=== PATIENT | female | born 1995 | race African-American/Black ===

== ENCOUNTER → 2016-09-11 13:53 | Emergency (ER) | payer SELFPAY ==
[~2016-09-11 13:53] MED LIST: CLIN1CAP6 PO; IBUP-232 PO; NUVAMIS PV; NUVAMIS VAGINAL; PERI0.126 SWISH-SPIT
[2016-09-11 13:55] VITALS: BP 124/75; PULSE 71; RESP 12; TEMP 97.5; O2SAT 97
== END | disposition left against medical advice (07) ==
LOC: NED 13:53
DX: K08.89 Other specified disorders of teeth and supporting structures (principal)
CPT/HCPCS: 99281

== ENCOUNTER 2016-09-13 13:39 | Emergency (ER) | payer SELFPAY ==
[~2016-09-13] VITALS: Ht 160 cm; Wt 93.0 kg
[~2016-09-13 13:39] MED LIST changes: -CLIN1CAP6 PO; -IBUP-232 PO; -NUVAMIS VAGINAL; -PERI0.126 SWISH-SPIT
[2016-09-13 13:41] VITALS: BP 130/66; PULSE 74; RESP 16; TEMP 98.4; O2SAT 96
[2016-09-13] MEDS ORDERED: NUVAMIS VAGINAL (13:45)
[2016-09-13] MEDS ORDERED: CLINDAMYCIN 150 MG CAP PO ONE (14:00)
[2016-09-13] MEDS ORDERED: PERI0.126 SWISH-SPIT (14:02)
[2016-09-13] MEDS ORDERED: IBUP-232 PO (14:02)
[2016-09-13] MEDS ORDERED: CLIN1CAP6 PO (14:02)
--- NOTE | 2016-09-13 14:03 | PD ---
HPI Chief Complaint: Oral / Dental Pain or Problem Time Seen by Provider: 13:58 Travel History International Travel<30 days: No Contact w/Intl Traveler<30days: No Traveled to known affect area: No History of Present Illness HPI 21-year-old female presents to the emergency department for evaluation of possible dental abscess. She states the toothache started on Saturday, 6 days ago , but the swelling started 5 days ago. She denies any fevers or chills. She reports no history of chronic medical problems and takes no prescribed medications. She states she has not been on antibiotics for this issue. Patient denies . She denies any other complaints. PFSH Past Medical History Diminished Hearing: No Reproductive: No Respiratory: Yes (asthma as a child) Immunizations Current: Yes ?: Not LMP: last week : 2 Para: 1 Miscarriage: 1 : 0 Past Surgical History Tonsillectomy: Yes Social History Alcohol Use: No (DENIES) Tobacco Use: No (DENIES) Substance Use: No Allergies-Medications (Allergen,Severity, Reaction): Coded Allergies: No Known Allergies (Verified , 09/13/16) Reported Meds & Prescriptions Reported Meds & Active Scripts Active Reported Nuvaring Vaginal Insert (Etonogestrel-Ethinyl Estradiol Vaginal Insert) 0.120- 0.015 Mg/24 Hr Vagring 1 Applic VAGINAL DIRECTED Review of Systems Except as stated in HPI: all other systems reviewed are Neg Physical Exam Narrative GENERAL: Well-developed well-nourished female patient, ambulatory. Afebrile. SKIN: Warm and dry. HEAD: Normocephalic. Atraumatic. No facial swelling noted. ENT: Mucosa pink and moist. No erythema or exudates. No uvular edema. No uvular , palatal, or tonsillar deviation. Airway patent. Nasal turbinates appear normal without nasal blood, purulent drainage or septal hematoma. Bilateral tympanic membranes are clear without erythema or perforation. Patient has tenderness to gingiva above tooth #6 and 7 consistent with a dental abscess. EYES: No scleral icterus. No injection or drainage. NECK: Supple, trachea midline. No JVD or lymphadenopathy. CARDIOVASCULAR: Regular rate and rhythm without murmurs, gallops, or rubs. RESPIRATORY: Breath sounds equal bilaterally. No accessory muscle use. Lungs sounds clear to auscultation. MUSCULOSKELETAL: No cyanosis, or edema. Data Data Last Documented VS Vital Signs Date Time Temp Pulse Resp B/P Pulse Ox O2 Delivery O2 Flow Rate FiO2 09/13/16 13:41 98.4 74 16 130/66 96 Room Air Orders Clindamycin (Cleocin) (09/13/16 14:00) MDM Medical Decision Making Medical Screen Exam Complete: Yes Emergency Medical Condition: Yes Medical Record Reviewed: Yes Differential Diagnosis Dental abscess versus gingivitis versus dental caries Narrative Course 21-year-old female presents to the emergency department for evaluation of toothache for 6 days. Physical exam is consistent with a dental abscess. Patient is given clindamycin 300 mg by mouth the emergency department. She will be discharged with a prescription for clindamycin, ibuprofen, Peridex oral solution. She is instructed to follow-up with a dentist. She is to return for any acute worsening of symptoms. Patient is agreeable. Diagnosis Primary Impression: Dental abscess Referrals: Dentist call for appointment Patient Instructions: Dental Abscess (ED), General Instructions Additional Instructions: Take antibiotic as directed until gone. Use Peridex oral solution as directed. Take ibuprofen as instructed as needed with food for pain. Follow-up with a dentist. Return to the emergency department for any acute worsening of symptoms. Med/Other Pt SpecificInfo: Prescription(s) given Scripts Chlorhexidine Gluconate (Mouth) Liq (Peridex Liq)0.12% Soln15 Ml SWISH-SPIT BID #473 ML Ref 0 Prov:Laney Bass 09/13/16 Ibuprofen 600 Mg [id number] Mg PO TID PRN (PAIN SCALE 1 TO 10) #21 TAB Ref 0 Prov:Laney Bass 09/13/16 Clindamycin 300 Mg [id number] Mg PO Q6H 10 Days Ref 0 Prov:Laney Bass 09/13/16 Disposition: 01 DISCHARGE HOME Condition: Stable Laney Bass Sep 13, 2016 14:03
== END 2016-09-13 14:11 | disposition home or self-care (01) ==
LOC: NEPB 13:39
DX: K04.7 Periapical abscess without sinus (principal)
CPT/HCPCS: 99282

== ENCOUNTER 2017-03-04 00:21 | Emergency (ER) | payer OTHER ==
[~2017-03-04] VITALS: Ht 160 cm; Wt 110.0 kg
[~2017-03-04 00:21] MED LIST changes: +CLIN1CAP6 PO; +IBUP-232 PO; -NUVAMIS PV; +NUVAMIS VAGINAL; +PERI0.126 SWISH-SPIT
[2017-03-04 00:53] VITALS: BP 131/73; PULSE 84; RESP 18; TEMP 97.9; O2SAT 99
--- NOTE | 2017-03-04 01:06 | PD ---
HPI Chief Complaint: Psychiatric Symptoms Time Seen by Provider: 01:02 Travel History International Travel<30 days: No Contact w/Intl Traveler<30days: No Traveled to known affect area: No History of Present Illness HPI 21-year-old black female presents to emergency department under [place] act by [place]. The patient had called dispatch notifying them she was feeling acutely depressed and having suicidal thoughts. She had contemplated walking out to traffic. She states that she's been feeling more depressed here recently but what more so today. She states that she lost her job a couple weeks ago. She is concerned regarding her rent coming due. She also had a fight with her boyfriend today. She denies any toxic ingestions. No recent illness. She denies . She denies alcohol, drugs and tobacco. PFSH Past Medical History Medical History: Denies Significant Hx Diminished Hearing: No Reproductive: No Respiratory: Yes (asthma as a child) Immunizations Current: Yes Tetanus Vaccination: < 5 Years ?: Not : 2 Para: 1 Miscarriage: 1 : 0 Past Surgical History Narrative Surgical Tonsillectomy Tonsillectomy: Yes Social History Alcohol Use: No (DENIES) Tobacco Use: No (DENIES) Substance Use: No Allergies-Medications (Allergen,Severity, Reaction): Coded Allergies: No Known Allergies (Verified , 09/13/16) Reported Meds & Prescriptions Reported Meds & Active Scripts Active Review of Systems Except as stated in HPI: all other systems reviewed are Neg Psychiatric: Positive: Depression, Suicidal Ideations, Mood Disorder, No: Anxiety, Disorder of Thought, Substance Abuse, Homicidal Ideation Physical Exam Narrative GENERAL: Well-nourished, well-developed patient. SKIN: Warm and dry. HEAD: Normocephalic and atraumatic. EYES: No scleral icterus. No injection or drainage. ENT: No nasal drainage noted. Mucous membranes pink. Airway patent. NECK: Supple, trachea midline. Moves head freely without obvious discomfort. CARDIOVASCULAR: Regular rate and rhythm without murmurs, gallops, or rubs. RESPIRATORY: Breath sounds equal bilaterally. No accessory muscle use. GASTROINTESTINAL: Abdomen soft, non-tender, nondistended. EXTREMITIES: No cyanosis or edema. BACK: Nontender without obvious deformity. No CVA tenderness. NEURO: Patient is alert and oriented. no sensorimotor deficits. Nonfocal. Normal speech. PSYCH: No delusions. No auditory or visual hallucinations. Data Data Last Documented VS Vital Signs Date Time Temp Pulse Resp B/P Pulse Ox O2 Delivery O2 Flow Rate FiO2 03/04/17 00:53 97.9 84 18 131/73 99 Orders Complete Blood Count With Diff (03/04/17 01:00) Comprehensive Metabolic Panel (03/04/17 01:00) Ed Urine Pregnancytest Poc (03/04/17 01:00) Psych Screen (03/04/17 01:00) Drug Screen, Random Urine (03/04/17 01:00) Alcohol (Ethanol) (03/04/17 01:00) Salicylates (Aspirin) (03/04/17 01:00) Tylenol (Acetaminophen) (03/04/17 01:00) Labs Laboratory Tests Test 03/04/17 01:00 White Blood Count 9.3 TH/MM3 Red Blood Count 4.35 MIL/MM3 Hemoglobin 13.2 GM/DL Hematocrit 39.7 % Mean Corpuscular Volume 91.3 FL Mean Corpuscular Hemoglobin 30.4 PG Mean Corpuscular Hemoglobin 33.3 % Concent Red Cell Distribution Width 13.6 % Platelet Count 235 TH/MM3 Mean Platelet Volume 10.0 FL Neutrophils (%) (Auto) 63.6 % Lymphocytes (%) (Auto) 24.9 % Monocytes (%) (Auto) 9.6 % Eosinophils (%) (Auto) 1.3 % Basophils (%) (Auto) 0.6 % Neutrophils # (Auto) 5.9 TH/MM3 Lymphocytes # (Auto) 2.3 TH/MM3 Monocytes # (Auto) 0.9 TH/MM3 Eosinophils # (Auto) 0.1 TH/MM3 Basophils # (Auto) 0.1 TH/MM3 CBC Comment DIFF FINAL Differential Comment Sodium Level 138 MEQ/L Potassium Level 3.8 MEQ/L Chloride Level 106 MEQ/L Carbon Dioxide Level 26.9 MEQ/L Anion Gap 5 MEQ/L Blood Urea Nitrogen 13 MG/DL Creatinine 0.91 MG/DL Estimat Glomerular Filtration 94 ML/MIN Rate Random Glucose 89 MG/DL Calcium Level 9.0 MG/DL Total Bilirubin 0.2 MG/DL Aspartate Amino Transf 12 U/L (AST/SGOT) Alanine Aminotransferase 28 U/L (ALT/SGPT) Alkaline Phosphatase 62 U/L Total Protein 7.5 GM/DL Albumin 3.6 GM/DL Salicylates Level LESS THAN 1.7 MG/DL Urine Opiates Screen NEG Acetaminophen Level LESS THAN 2.0 MCG/ML Urine Barbiturates Screen NEG Urine Amphetamines Screen NEG Urine Benzodiazepines Screen NEG Urine Cocaine Screen NEG Urine Cannabinoids Screen NEG Ethyl Alcohol Level LESS THAN 3 MG/DL MDM Medical Decision Making Medical Screen Exam Complete: Yes Emergency Medical Condition: Yes Medical Record Reviewed: Yes Interpretation(s) Laboratory Tests Test 03/04/17 01:00 White Blood Count 9.3 TH/MM3 Red Blood Count 4.35 MIL/MM3 Hemoglobin 13.2 GM/DL Hematocrit 39.7 % Mean Corpuscular Volume 91.3 FL Mean Corpuscular Hemoglobin 30.4 PG Mean Corpuscular Hemoglobin 33.3 % Concent Red Cell Distribution Width 13.6 % Platelet Count 235 TH/MM3 Mean Platelet Volume 10.0 FL Neutrophils (%) (Auto) 63.6 % Lymphocytes (%) (Auto) 24.9 % Monocytes (%) (Auto) 9.6 % Eosinophils (%) (Auto) 1.3 % Basophils (%) (Auto) 0.6 % Neutrophils # (Auto) 5.9 TH/MM3 Lymphocytes # (Auto) 2.3 TH/MM3 Monocytes # (Auto) 0.9 TH/MM3 Eosinophils # (Auto) 0.1 TH/MM3 Basophils # (Auto) 0.1 TH/MM3 CBC Comment DIFF FINAL Differential Comment Sodium Level 138 MEQ/L Potassium Level 3.8 MEQ/L Chloride Level 106 MEQ/L Carbon Dioxide Level 26.9 MEQ/L Anion Gap 5 MEQ/L Blood Urea Nitrogen 13 MG/DL Creatinine 0.91 MG/DL Estimat Glomerular Filtration 94 ML/MIN Rate Random Glucose 89 MG/DL Calcium Level 9.0 MG/DL Total Bilirubin 0.2 MG/DL Aspartate Amino Transf 12 U/L (AST/SGOT) Alanine Aminotransferase 28 U/L (ALT/SGPT) Alkaline Phosphatase 62 U/L Total Protein 7.5 GM/DL Albumin 3.6 GM/DL Salicylates Level LESS THAN 1.7 MG/DL Urine Opiates Screen NEG Acetaminophen Level LESS THAN 2.0 MCG/ML Urine Barbiturates Screen NEG Urine Amphetamines Screen NEG Urine Benzodiazepines Screen NEG Urine Cocaine Screen NEG Urine Cannabinoids Screen NEG Ethyl Alcohol Level LESS THAN 3 MG/DL Differential Diagnosis MDM: High Differential diagnoses: Schizophrenia, schizoaffective disorder, bipolar, anxiety, depression, adjustment reaction, mood disorder NOS, ODD, depressive disorder NOS, dementia, dementia with agitation, psychosis NOS, substance induced mood disorder, intermittent explosive disorder, Asperger syndrome, infection,electrolyte abnormality, malingering. Narrative Course Mental health screening discussed with the patient. Psychiatric screen ordered. The patient's been medically cleared. This is medical clearance for psychiatric admission, depression with SI Diagnosis Primary Impression: Medical clearance for psychiatric admission Additional Impression: Depression, major, single episode Qualified Code: F32.9 - Single current episode of major depressive disorder, unspecified depression episode severity Condition: Stable Gavin Klein Mar 04, 2017 01:05
[2017-03-04 01:32] LABS: AUTOMATED NEUTROPHIL # 5.9 TH/MM3 (1.8-7.7); BASOPHIL # 0.1 TH/MM3 (0-0.2); BASOPHIL % 0.6 % (0.0-2.0); EOSINOPHIL # 0.1 TH/MM3 (0-0.4); EOSINOPHIL % 1.3 % (0.0-4.0); HEMATOCRIT 39.7 % (35.0-46.0); HEMO FLAGS DIFF FINAL; LYMPH % 24.9 % (9.0-44.0); LYMPHOCYTE # 2.3 TH/MM3 (1.0-4.8); MEAN CELL VOLUME 91.3 FL (80.0-100.0); MEAN CORPUSCULAR HEMOGLOBIN 30.4 PG (27.0-34.0); MEAN CORPUSCULAR HGB CONC 33.3 % (32.0-36.0); MONO % 9.6 % (0.0-8.0); NEUT % 63.6 % (16.0-70.0); PLATELET COUNT 235 TH/MM3 (150-450); RED BLOOD COUNT 4.35 MIL/MM3 (4.00-5.30); RED CELL DISTRIBUTION WIDTH 13.6 % (11.6-17.2); WHITE BLOOD COUNT 9.3 TH/MM3 (4.0-11.0)
[2017-03-04 01:49] LABS: AMPHETAMINE, URINE NEG (NEG); BARBITURATES, URINE NEG (NEG); COCAINE, URINE NEG (NEG)
[2017-03-04 01:59] LABS: ALT (GPT) 28 U/L (10-53); ANION GAP 5 MEQ/L (5-15); AST (GOT) 12 U/L (15-37); BICARBONATE 26.9 MEQ/L (21.0-32.0); BLOOD UREA NITROGEN 13 MG/DL (7-18); CHLORIDE 106 MEQ/L (98-107); GLOMERULAR FILTRATION RATE 94 ML/MIN (>89); POTASSIUM 3.8 MEQ/L (3.5-5.1); SODIUM (NA) 138 MEQ/L (136-145)
[2017-03-04 02:01] LABS: ALKALINE PHOSPHATASE 62 U/L (45-117); TOTAL BILIRUBIN ADULT 0.2 MG/DL (0.2-1.0)
[2017-03-04 02:15] LABS: ACETAMINOPHEN LESS THAN 2.0 MCG/ML (10.0-30.0)
[2017-03-04 08:03] VITALS: BP 109/59; PULSE 95; RESP 17; O2SAT 100
--- NOTE | 2017-03-04 09:15 | PD.CONS ---
Provisional Diagnosis Admission Date [place] I. Adjustment disorder with depressed mood [place] II. Deferred [place] III. No significant medical history [place] IV. Unemployed [place] V. 55 History of Present Illness Service Psychiatry Consult Requested By Primary Care Physician No Primary Care Physician HPI The patient is a 21-year-old woman, domiciled alone, single, unemployed, she has 2 kids, without any previous psychiatric history, no previous psychiatric hospitalizations, no previous suicidal attempts, no significant medical history, who presents to emergency department under [place] act by PD. The patient had called dispatch notifying them she was feeling acutely depressed and having suicidal thoughts. She had contemplated walking out to traffic. She states that she's been feeling more depressed here recently but what more so today. She states that she lost her job a couple weeks ago. She is concerned regarding her rent coming due. She also had a fight with her boyfriend today. On psychiatric evaluation this morning, patient says that she feels much better now, she says that yesterday was very overwhelmed after having a fight with her . She says that she verbalize suicidal intentions as a cry of help, but she actually does not want to . Patient says that she is motivated to find a job and continue with her life, she reports as a protective factors are 2 kids, her family. At this moment the patient denies depressive symptoms, she denies anxiety, denies perceptual disturbances, she denies suicidal or homicidal ideation, she is oriented 3, no attention deficit, no agitation, no aggressive behavior, present or reported. Patient denies the use of alcohol and illicit drugs. Review of Systems Constitutional: DENIES: Diaphoretic episodes, Fatigue, Fever, Weight gain, Weight loss, Chills, Dizziness, Change in appetite, Night Sweats Endocrine: DENIES: Abnorml menstrual pattern, Heat/cold intolerance, Polydipsia , Polyuria, Polyphagia Respiratory: DENIES: Apneas, Cough, Snoring, Wheezing, Hemoptysis, Sputum production, Shortness of breath Cardiovascular: DENIES: Chest pain, Palpitations, Syncope, Dyspnea on Exertion , PND, Lower Extremity Edema, Orthopnea, Claudication Gastrointestinal: DENIES: Abdominal pain, Black stools, Bloody stools, Constipation, Diarrhea, Nausea, Vomiting, Difficulty Swallowing, Anorexia Genitourinary: DENIES: Abnormal vaginal bleeding, Dysmenorrhea, Dyspareunia, Sexual dysfunction, Urinary frequency, Urinary incontinence, Urgency, Hematuria , Dysuria, Nocturia, Vaginal discharge Musculoskeletal: DENIES: Joint pain, Muscle aches, Stiffness, Joint Swelling, Back pain, Neck pain Integumentary: DENIES: Abnormal pigmentation, Pruritus, Rash, Nail changes, Breast masses, Breast skin changes, Nipple discharge Hematologic/lymphatic: DENIES: Bruising, Lymphadenopathy Immunologic/allergic: DENIES: Eczema, Urticaria Neurologic: DENIES: Abnormal gait, Headache, Localized weakness, Paresthesias, Seizures, Speech Problems, Tremor, Poor Balance Psychiatric: DENIES: Anxiety, Confusion, Mood changes, Depression, Hallucinations, Agitation, Suicidal Ideation, Homicidal Ideation, Delusions Past Family Social History Coded Allergies: No Known Allergies (Verified , 09/13/16) Discontinued Reported Medications Etonogestrel-Ethinyl Estradiol Vaginal Insert (Nuvaring Vaginal Insert) 0.120- 0.015 Mg/24 Hr Vagring1 Applic VAGINAL DIRECTED #0 PACK Ref 0 09/13/16 Discontinued Scripts Chlorhexidine Gluconate (Mouth) Liq (Peridex Liq)0.12% Soln15 Ml SWISH-SPIT BID #473 ML Ref 0 Prov:KaliLaney FADUMO 09/13/16 Ibuprofen 600 Mg [id number] Mg PO TID PRN (PAIN SCALE 1 TO 10) #21 TAB Ref 0 Prov:Wes Basslm THORNE 09/13/16 Clindamycin 300 Mg [id number] Mg PO Q6H 10 Days Ref 0 Prov:Laney Bass FADUMO 09/13/16 Family History Patient has a sister with bipolar disorder Social History He was born and raised in [place], she lives alone, she has a boyfriend, she has 2 kids living with her family, unemployed, her highest level of education is 12th grade Patient's Strengths (min. 2) Verbal communication Physical Exam No tremors, no EPS, no psychomotor agitation or retardation, no stiffness Vital Signs Vital Signs Date Time Temp Pulse Resp B/P Pulse Ox O2 Delivery O2 Flow Rate FiO2 03/04/17 08:03 95 17 109/59 100 Room Air 03/04/17 00:53 97.9 Mental Status Examination Appearance woman, overweight, good hygiene, [facility], she is calm and cooperative Speech: Unremarkable Orientation: x3 Memory: Unremarkable Thought Process: Logical Thought Content: Unremarkable Language Is spontaneous and fluent Hallucination Type: None Attention and Concentration: Good Suicidal Ideation: No Previous Suicide Attempts: No Homicidal Ideation: No Previous Homicide Attempts: No Judgment: WNL Affect: Good Affect if Inappropriate: Flat Mood: Appropriate Motor Activity: Normal gait Assessment & Plan Problem List: (1) Adjustment disorder with depressed mood Assessment & Plan: On psychiatric evaluation today the patient does not present any evidence of acute, concerning or significant subjective or objective symptomatology of depression, and guiding, ramiro or psychosis. Patient denies suicidal and homicidal ideation, she denies visual and auditory hallucinations. Recently suicidal statement to the police and symptoms of depression were most probably related with him and with her boyfriend and other acute stressors. Patient is now at baseline, future oriented, with identifiable protective factor for suicidality. She does not meet criteria for involuntary psychiatric admission at this moment. Psychoeducation, support and motivation provided. [place] act would be lifted. ICD Code: F43.21 Assessment & Plan Estimated LOS: Aristeo Franco MD Mar 04, 2017 09:15
== END 2017-03-04 08:01 | disposition home or self-care (01) ==
LOC: NEPD 00:21
DX: Z02.89 Encounter for other administrative examinations (principal); F32.9 Major depressive disorder, single episode, unspecified; F43.21 Adjustment disorder with depressed mood
CPT/HCPCS: 80053; 80307; 84703; 85025; 99284

== ENCOUNTER 2017-04-02 12:37 | Emergency (ER) | payer MEDICAID ==
[~2017-04-02] VITALS: Ht 160 cm; Wt 100.0 kg
[2017-04-02 12:39] VITALS: BP 127/66; PULSE 90; RESP 20; TEMP 98.1; O2SAT 98
[2017-04-02] MEDS ORDERED: DOXY100C PO (13:55)
--- NOTE | 2017-04-02 13:56 | PD ---
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 She has a Mirena IUD and she wants it taken out. She thinks it might be causing her discomfort. She denies any fevers or chills. She's had 2 sexual partners in the past 6 months and she is concerned she may have a pelvic infection. PFSH Past Medical History Diminished Hearing: No Reproductive: No Respiratory: Yes (asthma as a child) Immunizations Current: Yes ?: Not : 2 Para: 2 Miscarriage: 0 : 0 Past Surgical History Tonsillectomy: Yes Social History Alcohol Use: No (DENIES) Tobacco Use: No (DENIES) Substance Use: No Allergies-Medications (Allergen,Severity, Reaction): Coded Allergies: No Known Allergies (Verified , 04/02/17) Reported Meds & Prescriptions Reported Meds & Active Scripts Active No Active Prescriptions or Reported Medications Review of Systems Except as stated in HPI: all other systems reviewed are Neg Physical Exam Narrative GENERAL:Well appearing, no acute distress SKIN: Focused skin assessment warm and dry. HEAD: Atraumatic. Normocephalic. EYES: Pupils equal and round. No injection or drainage. ENT: Moist mucous membranes NECK: Trachea midline. CARDIOVASCULAR: Regular rate and rhythm. No murmur appreciated. RESPIRATORY: Clear to auscultation. Breath sounds equal bilaterally. GASTROINTESTINAL: Abdomen soft, tender to palpation in the lower abdomen with no rebound/guarding HUMAN RESOURCES SPECIALIST: Some white frothy discharge in the vault, Mirena strings at the os, some cervical motion tenderness MUSCULOSKELETAL: No obvious deformities. NEUROLOGICAL: Awake and alert. No obvious cranial nerve deficits. Moving all extremities. PSYCHIATRIC: Appropriate mood and affect; insight and judgment normal. Data Data Last Documented VS Vital Signs Date Time Temp Pulse Resp B/P Pulse Ox O2 Delivery O2 Flow Rate FiO2 04/02/17 12:39 98.1 90 20 127/66 98 Room Air Orders Urinalysis - C+S If Indicated (04/02/17 13:34) Wet Prep Profile (04/02/17 13:34) Gc And Chlamydia Pcr (04/02/17 13:34) Ed Urine Pregnancytest Poc (04/02/17 13:34) [facility] Medical Decision Making Medical Screen Exam Complete: Yes Emergency Medical Condition: Yes Interpretation(s) Afebrile, no tachycardia, normotensive Differential Diagnosis Pelvic inflammatory disease, ectopic , IUD malposition Narrative Course This is a 21-year-old female who presents to the emergency department with lower abdominal discomfort that's been going on for 2 weeks. She wants her Mirena IUD out. She also has had some discharge. Pelvic exam is concerning for possible PID. Her Mirena was removed at her request and patient will be treated with antibiotics. Otherwise she appears well and I think she is appropriate for outpatient management. Procedures Procedure Narrative IUD removal: IUD was removed with forceps. Patient tolerated the procedure well and had no discomfort. Diagnosis Primary Impression: Pelvic inflammatory disease Additional Impression: Encounter for IUD removal Patient Instructions: General Instructions Additional Instructions: If you develop fever, chills, severe abdominal pain, persistent vomiting or inability to eat return to the emergency department. Your pelvic exam today did not include a Pap smear. It is important to followup with a continuous pickling line pickler on a yearly basis to be tested for cervical cancer as we do not do that from the emergency department. If there is a concern that you have sexually transmitted disease, your partner should be tested. You should followup with your continuous pickling line pickler or with the health department to get tested for other sexually transmitted diseases like HIV and syphilis, as we do not test for these in the emergency department Med/Other Pt SpecificInfo: Prescription(s) given Scripts Doxycycline Hyclate 100 Mg [id number] Mg PO BID #28 CAP Ref 0 Prov:Rosmery Patrick MD 04/02/17 Disposition: 01 DISCHARGE HOME Condition: Stable Rosmery Patrick MD Apr 02, 2017 13:56
[2017-04-02] MEDS ORDERED: AZITHROMYCIN PWD FOR SUSP 1 GM PACKET PO ONE (14:00)
[2017-04-02] MEDS ORDERED: LIDOCAINE HCL 1% 50 ML VIAL IM ONE (14:00)
[2017-04-02 14:05] LABS: BLOOD, URINE NEG (NEG); GLUCOSE,URINE NEG (NEG); KETONE, URINE NEG (NEG); MUCUS URINE FEW /lpf (OCC); NITRITE,URINE NEG (NEG); PH, URINE 5.5 (5.0-8.5); SQUAMOUS EPITHELIAL CELL URINE 5 /hpf (0-5); URINE COLOR YELLOW (YELLW/STRAW)
[2017-04-02 14:06] LABS: COMMENT (UR) CULT NOT INDICATED; CULTURE IF INDICATED CULT NOT INDICATED
[2017-04-02] MEDS ORDERED: METR-1 PO (14:18)
[2017-04-02 17:06] LABS: CHLAMYDIA PCR DETECTED (NOT DETECT); NEISSERIA PCR NOT DETECTED (NOT DETECT)
== END 2017-04-02 15:22 | disposition home or self-care (01) ==
LOC: NEPD 12:37
DX: N73.9 Female pelvic inflammatory disease, unspecified (principal); Z45.89 Encounter for adjustment and management of other implanted devices
CPT/HCPCS: 58301; 81001; 84703; 87210; 87491; 87591; 96372; 99284; J0696

== ENCOUNTER 2017-04-29 23:00 | Emergency (ER) | payer MEDICAID ==
[~2017-04-29 23:00] MED LIST changes: -CLIN1CAP6 PO; +DOXY100C PO; -IBUP-232 PO; +METR-1 PO; -NUVAMIS VAGINAL; -PERI0.126 SWISH-SPIT
[2017-04-29 23:02] VITALS: BP 137/76; PULSE 82; RESP 16; TEMP 98.4; O2SAT 96
[2017-04-30] MEDS ORDERED: ACYC800T PO (09:49)
== END 2017-04-30 01:45 | disposition left against medical advice (07) ==
LOC: NED 23:00
DX: R22.9 Localized swelling, mass and lump, unspecified (principal); Z53.21 Procedure and treatment not carried out due to patient leaving prior to being seen by health care provider
CPT/HCPCS: 99281

== ENCOUNTER 2017-04-30 08:20 | Emergency (ER) | payer MEDICAID ==
[2017-04-30 08:52] VITALS: BP 134/77; PULSE 88; RESP 15; TEMP 98.1; O2SAT 99
[2017-04-30] MEDS ORDERED: ACYCLOVIR 800 MG TAB PO ONE (09:45)
[2017-04-30] MEDS ORDERED: ACYC800T PO (09:49)
--- NOTE | 2017-04-30 09:49 | PD ---
HPI Chief Complaint: Counselor Aid Problem/Complaint Time Seen by Provider: 09:27 Travel History International Travel<30 days: No Contact w/Intl Traveler<30days: No Traveled to known affect area: No History of Present Illness HPI 21-year-old female came to the emergency room with history of vaginal sores that are really painful that she noticed for past few days. She says every time she goes to wipe herself it really hurts. When she urinates and the urine touches the area it bhatt. Her mom took a look at it today and asked her to come to the emergency room. No history of fever or chills. Patient was in the emergency room 4 weeks ago for vaginal discharge. I looked at the lab report and she was positive for chlamydia and BV. Patient was discharged home on acyclovir and Flagyl and was given an IM dose of Rocephin. Patient says that she finished the course of the 2 medications that she was sent home on. She has not had sex since then. She had an IUD which she got taken out and has started herself on control pills. FORMERLY [facility], [facility] Past Medical History Narrative Medical List of her past medical, surgical, social and family history is reviewed from the nursing note. Diminished Hearing: No Reproductive: No Respiratory: Yes (asthma as a child) Immunizations Current: Yes Tetanus Vaccination: > 5 Years Influenza Vaccination: No ?: Not LMP: 04/02/17 : 2 Para: 2 Miscarriage: 0 : 0 Past Surgical History Tonsillectomy: Yes Social History Alcohol Use: No (DENIES) Tobacco Use: No (DENIES) Substance Use: No Allergies-Medications (Allergen,Severity, Reaction): Coded Allergies: No Known Allergies (Verified , 04/30/17) Comments No known drug allergies Reported Meds & Prescriptions Reported Meds & Active Scripts Active Acyclovir 800 Mg Tab 800 Mg PO 5 TIMES A DAY 7 Days Narrative Medication List of her home medications reviewed from the nursing note. Review of Systems Except as stated in HPI: all other systems reviewed are Neg Physical Exam Narrative GENERAL: Awake, alert, obese, no obvious distress SKIN: Focused skin assessment warm/dry. HEAD: Atraumatic. Normocephalic. EYES: Pupils equal and round. No scleral icterus. No injection or drainage. ENT: No nasal bleeding or discharge. Mucous membranes pink and moist. NECK: Trachea midline. No JVD. CARDIOVASCULAR: Regular rate and rhythm. No murmur appreciated. RESPIRATORY: No accessory muscle use. Clear to auscultation. Breath sounds equal bilaterally. GASTROINTESTINAL: Abdomen soft, non-tender, nondistended. Hepatic and splenic margins not palpable. : On the posterior aspect of the external margin of the vaginal vault at 5 o' clock position there are multiple small ulcerated lesions that are extremely tender to touch. There is some white mucousy discharge noticed from the vault. No speculum exam was done. MUSCULOSKELETAL: No obvious deformities. No clubbing. No cyanosis. No edema. NEUROLOGICAL: Awake and alert. No obvious cranial nerve deficits. Motor grossly within normal limits. Normal speech. PSYCHIATRIC: Appropriate mood and affect; insight and judgment normal. Data Data Last Documented VS Vital Signs Date Time Temp Pulse Resp B/P (MAP) Pulse Ox O2 Delivery O2 Flow Rate FiO2 04/30/17 09:58 97.8 78 16 120/77 (91) 99 Orders Orders Acyclovir (Zovirax) (04/30/17 09:45) [facility] Medical Decision Making Medical Screen Exam Complete: Yes Emergency Medical Condition: Yes Medical Record Reviewed: Yes Differential Diagnosis Herpes genitalis Narrative Course 9:47 AM patient was given one dose of acyclovir. I'll discharge her home on prescription. Patient has been educated regarding the herpes genitalis. I asked her to call her partners and have them go for treatments as well. Procedures EKG Prior to Arrival: No Diagnosis Primary Impression: Herpes genitalis in women Additional Impression: Vaginal pain Referrals: Primary Care Physician Additional Instructions: Please return to the ER if the condition worsens or any other new concerns. Take the medication as per the prescription direction. Witch milagros pads on the panty liner might be helpful and soothing. Herpes is recurrent. You should have intercourse with condoms only. The partner should be called so that he can get treated for chlamydia and educated about herpes. Med/Other Pt SpecificInfo: Prescription(s) given Scripts Acyclovir (Acyclovir) 800 Mg Tab 800 MG PO 5 TIMES A DAY for Mgmt Viral Infection for 7 Days, TAB 0 Refills Prov: Radha Naidu MD 04/30/17 Disposition: 01 DISCHARGE HOME Condition: Stable Radha Naidu MD Apr 30, 2017 09:49
[2017-04-30 09:58] VITALS: BP 120/77; TEMP 97.8
== END 2017-04-30 09:58 | disposition home or self-care (01) ==
LOC: NEPD 08:20
DX: A60.00 Herpesviral infection of urogenital system, unspecified (principal); R10.2 Pelvic and perineal pain
CPT/HCPCS: 99283